=== PATIENT | male | born 1940 | race Caucasian/White ===

== ENCOUNTER 2018-03-26 06:46 | Outpatient (CLI) | payer OTHER ==
[~2018-03-26 06:46] MED LIST: IBUPROFEN800 MG PO; ORPH100T PO; ZANTAC300 MG PO
== END 2018-03-26 06:50 | disposition home or self-care (01) ==
LOC: LAB 06:46
DX: I10 Essential (primary) hypertension (principal); E11.9 Type 2 diabetes mellitus without complications; E03.8 Other specified hypothyroidism; E78.2 Mixed hyperlipidemia

== ENCOUNTER 2018-03-26 07:05 | Outpatient (CLI) | payer OTHER | END 2018-03-26 07:26 | disposition home or self-care (01) | LOC: TOM 07:05 → RAD 07:05 → TOM 10:00 | DX: R41.2 Retrograde amnesia (principal); M46.47 Discitis, unspecified, lumbosacral region; M12.88 Other specific arthropathies, not elsewhere classified, other specified site; M19.90 Unspecified osteoarthritis, unspecified site ==

== ENCOUNTER 2018-03-31 08:01 | Outpatient (CLI) | payer OTHER | END 2018-03-31 10:00 | disposition home or self-care (01) | LOC: NUCLEAR 08:01 | DX: I73.9 Peripheral vascular disease, unspecified (principal); I87.2 Venous insufficiency (chronic) (peripheral); E11.9 Type 2 diabetes mellitus without complications ==

== ENCOUNTER → 2018-04-01 | Outpatient (CLI) | payer OTHER | END | disposition home or self-care (01) | LOC: NUCLEAR 08:08 | DX: I87.2 Venous insufficiency (chronic) (peripheral) (principal) ==

== ENCOUNTER 2018-09-30 11:35 | Outpatient (CLI) | payer OTHER | END 2018-09-30 11:41 | disposition home or self-care (01) | LOC: RAD 11:35 | DX: M12.812 Other specific arthropathies, not elsewhere classified, left shoulder (principal); M19.012 Primary osteoarthritis, left shoulder ==

== ENCOUNTER 2018-10-14 13:41 | Outpatient (CLI) | payer OTHER | END 2018-10-14 13:43 | disposition home or self-care (01) | LOC: SONOGRAMA 13:41 → MAMO-SONO 14:15 | DX: M12.9 Arthropathy, unspecified (principal); M19.90 Unspecified osteoarthritis, unspecified site ==

== ENCOUNTER 2019-12-24 12:59 | Outpatient (CLI) | payer OTHER | END 2019-12-24 13:01 | disposition home or self-care (01) | LOC: TOM 12:59 | DX: R31.0 Gross hematuria (principal) ==

== ENCOUNTER → 2019-12-27 06:31 | Outpatient (CLI) | payer OTHER | END | disposition home or self-care (01) | LOC: LAB 06:31 | DX: R31.0 Gross hematuria (principal); I10 Essential (primary) hypertension; N39.0 Urinary tract infection, site not specified; E11.9 Type 2 diabetes mellitus without complications ==

== ENCOUNTER 2019-12-27 10:57 | Outpatient (CLI) | payer OTHER | END 2019-12-29 06:33 | disposition home or self-care (01) | LOC: RAD 10:57 | DX: C67.1 Malignant neoplasm of dome of bladder (principal) ==

== ENCOUNTER 2020-01-17 07:48 | Outpatient (CLI) | payer OTHER | END 2020-01-17 08:01 | disposition home or self-care (01) | LOC: SONOGRAMA 07:48 | PROVIDERS: ATTEND Urology | DX: C67.9 Malignant neoplasm of bladder, unspecified (principal) ==

== ENCOUNTER 2021-04-10 08:00 | Outpatient (CLI) | payer OTHER | END 2021-04-10 08:30 | disposition home or self-care (01) | LOC: PPH VACUNA 08:00 | DX: Z23 Encounter for immunization (principal) ==

== ENCOUNTER 2021-11-29 08:00 | Outpatient (CLI) | payer OTHER | END 2021-11-29 08:30 | disposition home or self-care (01) | LOC: PPH VACUNA 08:00 | PROVIDERS: ATTEND Emergency Medicine Pediatric Emergency Medicine | DX: Z23 Encounter for immunization (principal) ==

== ENCOUNTER 2022-05-20 08:19 | Outpatient (CLI) | payer OTHER | END 2022-05-20 08:29 | disposition home or self-care (01) | LOC: PPH VACUNA 08:19 | PROVIDERS: ATTEND Emergency Medicine Pediatric Emergency Medicine | DX: Z23 Encounter for immunization (principal) ==

== ENCOUNTER 2022-09-10 14:06 | Outpatient (CLI) | payer OTHER | END 2022-09-10 14:16 | disposition home or self-care (01) | LOC: LAB 14:06 | PROVIDERS: ATTEND Urology | DX: N30.00 Acute cystitis without hematuria (principal) ==